=== PATIENT | male | born 1985 | race Caucasian/White ===

== ENCOUNTER 2017-10-25 14:46 | Emergency (ER) | payer OTHER ==
[2017-10-25 14:56] VITALS: TEMP 97.9
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
[2017-10-25] MEDS ORDERED: IBUPROFEN 600 MG TAB PO ONE (15:23)
[2017-10-25] MEDS ORDERED: HYDROCODONE/APAP 5/325 TAB PO ONE (16:50)
[2017-10-25 16:54] VITALS: RESP 16
[2017-10-25] MEDS ORDERED: predniSONE 20 MG TAB ONE (18:41)
[2017-10-25] MEDS ORDERED: predniSONE 20 MG TAB PO ONE (18:43)
[2017-10-25 18:59] VITALS: BP 153/86; PULSE 82; O2SAT 94
== END 2017-10-25 18:59 | disposition home or self-care (01) ==
DX: S63.501A Unspecified sprain of right wrist, initial encounter (principal); S80.02XA Contusion of left knee, initial encounter; M50.20 Other cervical disc displacement, unspecified cervical region; F17.200 Nicotine dependence, unspecified, uncomplicated; V49.00XA Driver injured in collision with unspecified motor vehicles in nontraffic accident, initial encounter; Y92.410 Unspecified street and highway as the place of occurrence of the external cause; Y93.89 Activity, other specified
CPT/HCPCS: J7512; L3807